=== PATIENT | female | born 1940 | race Caucasian/White ===

== ENCOUNTER → 2019-11-04 | Outpatient (CLI) | payer OTHER, MEDICARE ==
[~2019-11-04] MED LIST: CENTRUM ADULTS1 EACH PO; DILTIAZEM ER360 M1 PO; HUMIRA PEN40 MG/0.4 SUBQ; LEVOTHYROXINE112 MCG PO; MECLIZINE HCL25 M1 PO; METOCLOPRAMIDE 55 M1 PO; OMEPRAZOLE40 MG PO; POTASSIUM CHLO10 ME1 PO; SYSTANE ULTRA 010 ML OPHTHALMIC; [UNRECOGNIZED DRUG - OTHER] OPHTHALMIC
== END ==
LOC: LAB 13:52
PROVIDERS: ATTEND Ophthalmology
DX: Z01.812 Encounter for preprocedural laboratory examination (principal); Z20.828 Contact with and (suspected) exposure to other viral communicable diseases

== ENCOUNTER 2019-11-07 06:05 | Day surgery (SDC) | payer OTHER, MEDICARE ==
[~2019-11-07] VITALS: Ht 152.4 cm; Wt 55.8 kg
--- NOTE | ~2019-11-07 | O ---
[facility] [place] [address] OPERATIVE REPORT Name: SARA ENRIQUEZ Room #: 150-2 [facility]..#: [id number] Admission: 11/07/19 Attend Phys: Guanaco Meeks MD Discharge: Date of : 40 Report #: [id number] THIS REPORT FOR: cc: Willie Esteves MD, Mark E. MD White,Guanaco Pulido MD ~ CC: Willie Meeks DATE OF SERVICE: 11/07/2019 SURGEON: Guanaco Meeks M.D. TABULATING SUPERVISOR: None. PREOPERATIVE DIAGNOSIS: Bilateral lower lid ectropion. POSTOPERATIVE DIAGNOSIS: Bilateral lower lid ectropion. OPERATION PERFORMED: Bilateral lower lid ectropion repair. ANESTHESIA: Local with IV sedation. COMPLICATIONS: None. INDICATIONS FOR PROCEDURE: This patient has bilateral acquired lower lid ectropion with chronic tearing, keratopathy and discharge. The current procedures are undertaken in order to improve the patient's visual function, lacrimal outflow, and level of comfort. Informed consent was obtained to include but not limit to the risk of loss of vision, bleeding, infection, scarring, failure to improve the problem and need for further surgery. DESCRIPTION OF OPERATION: The patient was taken to the operating room where 2% Xylocaine with epinephrine mixed with equal parts of 0.75% Marcaine with Wydase was administered transcutaneously and transconjunctivally to each lower lid and lateral canthal area. The patient was then prepped and draped in the usual sterile fashion. A Berenice clamp was then used to clamp the left lateral canthus following which a sharp canthotomy and cantholysis were performed. The tarsal strip was prepared laterally, removing the lash bearing portion of the redundant lid margin and the redundant tarsal plate. Hemostasis was achieved with a monopolar cautery, as it was throughout the case. The tarsal strip was then secured to the internal portion of the lateral orbital tubercle with two interrupted 5-0 Prolene sutures. The lateral canthal angle was sharply reformed as the subcutaneous structures and the skin were closed with multiple [facility] [address] [place] [address] OPERATIVE REPORT Name: SARA ENRIQUEZ Room #: 150-2 [facility].#: [id number] Admission: 11/07/19 Attend Phys: Guanaco Meeks MD Discharge: Date of : 40 Report #: [id number] interrupted 6-0 plain gut sutures. Attention was then turned to the right side where the same procedure was performed. The wounds were cleaned and dressed with ophthalmic antibiotic ointment. The patient was then transported to the recovery area, having tolerated the procedure well with no anesthetic or operative complications being noted. By: [id number] Guanaco Meeks MD /nt
[2019-11-07 09:42] VITALS: BP 146/73
== END 2019-11-07 08:25 | disposition home or self-care (01) ==
LOC: OR 06:05 → TBA 06:05 → OR 08:25
PROVIDERS: ATTEND Ophthalmology
DX: H02.105 Unspecified ectropion of left lower eyelid (principal); H02.102 Unspecified ectropion of right lower eyelid; I10 Essential (primary) hypertension; K21.9 Gastro-esophageal reflux disease without esophagitis; Z98.890 Other specified postprocedural states; Z79.899 Other long term (current) drug therapy; Z98.41 Cataract extraction status, right eye; Z90.710 Acquired absence of both cervix and uterus; Z98.42 Cataract extraction status, left eye; Z87.19 Personal history of other diseases of the digestive system; Z86.73 Personal history of transient ischemic attack (TIA), and cerebral infarction without residual deficits; Z86.2 Personal history of diseases of the blood and blood-forming organs and certain disorders involving the immune mechanism; Z88.2 Allergy status to sulfonamides; Z79.82 Long term (current) use of aspirin
CPT/HCPCS: 50010; 50101; 50386; 50398; 51636; 56527; 56531; 62110; 62850; 70005